=== PATIENT | male | born 1935 ===

== ENCOUNTER 2018-12-10 14:10 | Inpatient (IN) | payer MEDICARE, MEDICAID ==
[2018-12-10 14:10] VITALS: BMI 23.6
--- NOTE | 2018-12-10 14:56 | C.PDOC ---
History Of Present Illness 83 y/o male,w/PMhx of atrial fibrillation, CAD, peripheral vascular disease, intercranial hemorrhage, and aortic stenosis, presents to the ER complaining of chest tightness which has been for "long while." Patient states that he has chest tightness even with mild exertion. Patient reports that he can't even walk 1 block without having chest tightness. He notes that he has to rest before he can continue walking. He is currently on Coumadin. He went to see and referred him to the ER. Denies having SOB, fever,chills, nausea, vomiting, and abdominal pain. Time Seen by Provider: 12/10/18 14:32 Chief Complaint (Nursing): Chest Pain History Per: Patient History/Exam Limitations: no limitations Onset/Duration Of Symptoms: Days Current Symptoms Are (Timing): Still Present Severity: Moderate Past Medical History Reviewed: Historical Data, Nursing Documentation, Vital Signs Vital Signs: Last Vital Signs Temp 97.3 F L 12/10/18 14:52 Pulse 94 H 12/10/18 14:52 Resp 16 12/10/18 14:52 BP 165/90 H 12/10/18 14:52 Pulse Ox 99 12/10/18 14:52 Primary Care Provider: Alvarez Bradshaw - Medical History PMH: Asthma (SEASONAL), Atrial Fibrillation, Cardia Arrhythmia, Cardiac Aneurysm, HTN, Hypercholesterolemia Denies: HIV, Chronic Kidney Disease Other Surgeries: Hx of surgeries - [facility] Procedures ANGIOPLASTY OF OTHER NON-CORONARY VESSEL(S) (11/12/13) DX ULTRASOUND-HEART (11/12/13) INSEJ OF DRUG-ELUTING STENT(S) OF OTH PERIPHERAL VESSEL(S) (11/12/13) INSERTION OF ONE VASCULAR STENT (11/12/13) OTHER ENDOVASCULAR PROCEDURES ON OTHER VESSELS (11/12/13) PROCEDURE ON SINGLE VESSEL (11/12/13) TU DESTRUC BLADD LES NEC (02/14/15) Family History: States: No Known Family Hx - Social History Hx Tobacco Use: No Hx Alcohol Use: No Hx Substance Use: No - Immunization History Hx Tetanus Toxoid Vaccination: Yes Hx Influenza Vaccination: Yes Hx Pneumococcal Vaccination: Yes Review Of Systems Constitutional: Negative for: Fever, Chills Cardiovascular: Positive for: Other (chest tightness) Respiratory: Negative for: Shortness of Breath Gastrointestinal: Negative for: Nausea, Vomiting Physical Exam - Physical Exam Appears: Non-toxic, No Acute Distress Skin: Normal Color, Warm, Dry Head: Atraumatic, Normacephalic Eye(s): bilateral: Normal Inspection Nose: Normal Oral Mucosa: Moist Neck: Supple Chest: Symmetrical Cardiovascular: Rhythm Irregular, Murmur (loud murmur) Respiratory: Normal Breath Sounds, No Rales, No Rhonchi, No Wheezing Gastrointestinal/Abdominal: Normal Exam, Soft, No Tenderness, No Guarding, No Rebound Neurological/Psych: Oriented x3, Normal Speech ED Course And Treatment - Laboratory Results Result Diagrams: 12/10/18 15:07 12/10/18 15:07 Lab Interpretation: No Acute Changes ECG: Interpreted By Me ECG Rhythm: Atrial Fibrillation (with left axis and LVH) ECG Interpretation: No Acute Changes O2 Sat by Pulse Oximetry: 99 (RA) Pulse Ox Interpretation: Normal - Radiology CXR: Viewed By Me, Read By Radiologist CXR Interpretation: Yes: No Acute Disease, Cardiomegaly Reevaluation Time: 19:59 Reassessment Condition: Improved - Physician Consult Information Time Consulting Physician Contacted: 19:59 Physician Contacted: Oscar Gonzalez Outcome Of Conversation: Patient to be admitted to [facility] for exertional angina and cardiac cath tomorrow. Medical Decision Making Medical Decision Making: Plan: --Labs --CXR Disposition - Disposition Disposition: HOSPITALIZED Disposition Time: 19:59 Condition: STABLE - POA Present On Arrival: None - Clinical Impression Clinical Impression: Chest pain - Scribe Statement The provider has reviewed the documentation as recorded by the [facility] Provider Attestation: All medical record entries made by the [facility] were at my direction and personally dictated by me. I have reviewed the chart and agree that the record accurately reflects my personal performance of the history, physical exam, medical decision making, and the department course for this patient. I have also personally directed, reviewed, and agree with the discharge instructions and disposition.
[2018-12-10 15:24] LABS: BASO % 0.5 % (0.0-2.0); EOS % 0.2 % (0.0-4.0); HEMOGLOBIN 16.6 g/dL (12.0-18.0); LYMPH # 1.1 K/uL (1.0-4.3); LYMPH % 13.2 % (20.0-40.0); MEAN CORPUSCULAR HEMOGLOBIN 33.8 pg (27.0-31.0); MEAN CORPUSCULAR HGB CONC 34.4 g/dL (33.0-37.0); MEAN PLATELET VOLUME 8.2 fL (7.2-11.7); MONO # 0.7 K/uL (0.0-0.8); MONO % 8.6 % (0.0-10.0); NEUT # 6.6 K/uL (1.8-7.0); NEUT % 77.5 % (50.0-75.0); RBC 4.92 Mil/uL (4.40-5.90); RED CELL DISTRIBUTION WIDTH 13.9 % (11.5-14.5); WHITE BLOOD COUNT 8.5 K/uL (4.8-10.8)
[2018-12-10 15:28] LABS: MEAN CELL VOLUME 98.1 fL (80.0-94.0)
[2018-12-10 15:41] LABS: ALB/GLOB RATIO 1.2 (1.0-2.1); ALBUMIN 4.3 g/dL (3.5-5.0); ALT/SGPT 24 U/L (21-72); AST/SGOT 39 U/L (17-59); BLOOD UREA NITROGEN 37 mg/dL (9-20); CALCIUM 10.9 mg/dl (8.6-10.4); GFR NON-AFRICAN AMERICAN 58
--- NOTE | 2018-12-10 15:49 | RAD ---
Date of service: 12/10/2018 PROCEDURE: CHEST RADIOGRAPH, 1 VIEW HISTORY: Chest pain. COMPARISON: 11/04/2015. FINDINGS: LUNGS: Clear. PLEURA: No pneumothorax or pleural fluid seen. CARDIOVASCULAR: No aortic atherosclerotic calcification present. Cardiomegaly. No evidence of acute, significant cardiovascular disease. OSSEOUS STRUCTURES: No significant abnormalities. VISUALIZED UPPER ABDOMEN: Normal. OTHER FINDINGS: None. IMPRESSION: No active pulmonary disease. Cardiomegaly without CHF.
--- NOTE | 2018-12-10 21:56 | CP.PCM.HP ---
History of Present Illness - History of Present Illness History of Present Illness: Chief complaint: Exertional dyspnea HPI: 83-year-old male with a history of hypertension, atherosclerotic heart disease, peripheral vascular disease, hypercholesterolemia, brain aneurysm, status post brain bleed, status post aneurysmal coiling, currently on anticoagulation with Coumadin. Patient currently taking the medications for his blood pressure and also cholesterol. Patient is now having increasing dementia. But he is complaining of increasing exertional dyspnea especially walking less than a block because of increasing chest tightness and chest pressure at this time as of breath. Patient experiencing the symptoms more frequently now, associated with some dizziness. Patient in the past was told that he had a history of aortic stenosis, which is probably getting worse at this time. He denies any vomiting at this time no nausea. No abdominal pain. No GI symptoms. He is going to the bathroom normally. No leg pain. Patient had recent epidural injection for his lower back pain Past medical history: Hypertension, hypercholesterolemia, atherosclerotic heart disease, PVD, hypercholesterolemia, benign aneurysm, CVA with vascular dementia, aortic stenosis and PVD with stenting Surgical history include coiling of the aneurysm of the brain Angioplasty of the legs. Allergies: Multiple allergies noted including codeine and vancomycin Family history noncontributory Patient is a non-smoker. Nonalcoholic. Lives by himself. Patient has a home health aide service per day for 5 days. Review of system: Patient is currently living independently. With home health aide. His walking capacity significantly decreased to because of the shortness of breath. Leg pain negative. Denies any headache. Recently had a stroke. Currently on Coumadin. He has severe atherosclerotic heart disease. No abdominal pain no chest pain at this time, but is severe exertional dyspnea present On examination: Vital signs otherwise stable. Chest bilateral good air entry Heart sounds are regular Systolic murmur noted. Abdomen soft nontender. TRANSFER AGENT alert awake oriented x3 no functional neurological deficit Patient has a bilateral lower extremity edema negative I reviewed the patient's labs. Nonspecific Chest x-ray nonspecific. In the past the patient had multiple evaluation of the CAT scan of the abdomen on the CAT scan of the abdomen CAT scan of the chest. Patient has a severe atherosclerotic aorta with good tortuosity noted in the abd omen as well as in the chest. Assessment and recommendation: 83-year-old male with history of hypertension Atherosclerosis. Hypercholesterolemia. Peripheral vascular disease. History of aneurysmal bleeding. 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 CVA. Vascular dementia. Aortic stenosis now. Onset exertional dyspnea Cardiac ischemia cannot be ruled out to Cardiology evaluation. Telemetry monitoring. We will continue to monitor and follow the patient. Cardiac enzymes monitoring I spoke to the patient's son in detail. I also spoke to the marine firer Present on Admission - Present on Admission Any Indicators Present on Admission: No History of DVT/PE: No History of Uncontrolled Diabetes: No Urinary Catheter: No Decubitus Ulcer Present: No Past Patient History - Infectious Disease Hx of Infectious Diseases: None - Past Medical History & Family History Past Medical History?: Yes - Past Social History Smoking Status: Never Smoked - CARDIAC Hx Atrial Fibrillation: Yes Hx Cardia Arrhythmia: Yes Hx Hypercholesterolemia: Yes Hx Hypertension: Yes - PULMONARY Hx Asthma: Yes (SEASONAL) - NEUROLOGICAL Hx Neurological Disorder: Yes Other/Comment: Aneurysm, multiple - HEENT Hx HEENT Problems: Yes Hx Cataracts: Yes (Right with intraocular lens) Hx Glaucoma: Yes - RENAL Hx Chronic Kidney Disease: No - ENDOCRINE/METABOLIC Hx Endocrine Disorders: No - HEMATOLOGICAL/ONCOLOGICAL Hx Human Immunodeficiency Virus (HIV): No - INTEGUMENTARY Hx Dermatological Problems: Yes (PRE CANCEROUS LESIONS OVER BODY X6-REMOVED) - MUSCULOSKELETAL/RHEUMATOLOGICAL Hx Musculoskeletal Disorders: No Hx Falls: Yes - GASTROINTESTINAL Hx Gastrointestinal Disorders: No - GENITOURINARY/GYNECOLOGICAL Hx Genitourinary Disorders: Yes Hx Hematuria: Yes - PSYCHIATRIC Hx Substance Use: No - SURGICAL HISTORY Hx Surgeries: Yes Hx Angioplasty: Yes (double) Hx Cataract Extraction: Yes (RIGHT) Other/Comment: STENT IN RIGHT LEG FROM CLOT NOVEMBER 2013. - ANESTHESIA Hx Anesthesia: Yes Hx Anesthesia Reactions: No Hx Malignant Hyperthermia: No Meds Allergies/Adverse Reactions: Allergies Allergy/AdvReac Type Severity Reaction Status Date / Time codeine Allergy SHORTNESS Verified 12/10/18 14:48 OF BREATH Tricyclic Compounds Allergy SHORTNESS Verified 12/10/18 14:48 OF BREATH vancomycin Allergy SHORTNESS Verified 12/10/18 14:48 OF BREATH Canteloupe, melons Allergy ITCHING Uncoded 12/10/18 14:48 Results - Vital Signs Recent Vital Signs: Last Vital Signs Temp 97.3 F L 12/10/18 18:27 Pulse 69 12/10/18 18:27 Resp 16 12/10/18 18:27 BP 99/75 L 12/10/18 18:27 Pulse Ox 99 12/10/18 20:00 - Labs Result Diagrams: 12/10/18 15:07 12/10/18 15:07 Labs: Laboratory Results - last 24 hr 12/10/18 12/10/18 15:07 15:07 WBC 8.5 RBC 4.92 Hgb 16.6 Hct 48.2 MCV 98.1 H D MCH 33.8 H MCHC 34.4 RDW 13.9 Plt Count 237 MPV 8.2 Neut % (Auto) 77.5 H Lymph % (Auto) 13.2 L [place] % (Auto) 8.6 Eos % (Auto) 0.2 Baso % (Auto) 0.5 Neut # (Auto) 6.6 Lymph # (Auto) 1.1 [place] # (Auto) 0.7 Eos # (Auto) 0.0 Baso # (Auto) 0.0 Sodium 139 Potassium 3.9 Chloride 100 Carbon Dioxide 27 Anion Gap 16 BUN 37 H Creatinine 1.2 Est GFR ( Amer) > 60 Est GFR (Non-Af Amer) 58 Random Glucose 131 H Calcium 10.9 H Total Bilirubin 0.7 AST 39 ALT 24 Alkaline Phosphatase 33 L Troponin I 0.0400 Total Protein 7.8 Albumin 4.3 Globulin 3.5 Albumin/Globulin Ratio 1.2
[2018-12-11] MEDS ORDERED: Pneumococcal 23-Valent Vaccine IM ONE (00:09)
[2018-12-11 02:16] LABS: INR 1.9; PROTHROMBIN TIME 20.8 SECONDS (9.7-12.2)
[2018-12-11 06:23] LABS: INR 1.8; PROTHROMBIN TIME 20.3 SECONDS (9.7-12.2)
[2018-12-11 06:27] LABS: CK-MB 2.87 ng/mL (0.0-3.38); TROPONIN I 0.059 ng/mL (0.00-0.120)
--- NOTE | 2018-12-11 07:09 | CP.PCM.CON ---
History of Present Illness - History of Present Illness History of Present Illness: CONSULTATION DICTATED S/P ANEURYSMAL CLIPPED LAST YEAR Hx SAH WITH THE SAME DEMENTIA CAT HEAD R/O BLEED PRIOR TO CARDIAC CATH IF NO ICH FROM CAT - NEURO MCCLURE HE IS CLEARED FOR CARDIAC PROCEDURE AND ANTI COAGULATION Past Patient History - Infectious Disease Hx of Infectious Diseases: None - Past Medical History & Family History Past Medical History?: Yes - Past Social History Smoking Status: Never Smoked - CARDIAC Hx Atrial Fibrillation: Yes Hx Cardia Arrhythmia: Yes Hx Hypercholesterolemia: Yes Hx Hypertension: Yes - PULMONARY Hx Asthma: Yes (SEASONAL) - NEUROLOGICAL Hx Neurological Disorder: Yes Other/Comment: Aneurysm, multiple - HEENT Hx HEENT Problems: Yes Hx Cataracts: Yes (Right with intraocular lens) Hx Glaucoma: Yes - RENAL Hx Chronic Kidney Disease: No - ENDOCRINE/METABOLIC Hx Endocrine Disorders: No - HEMATOLOGICAL/ONCOLOGICAL Hx Human Immunodeficiency Virus (HIV): No - INTEGUMENTARY Hx Dermatological Problems: Yes (PRE CANCEROUS LESIONS OVER BODY X6-REMOVED) - MUSCULOSKELETAL/RHEUMATOLOGICAL Hx Musculoskeletal Disorders: No Hx Falls: Yes - GASTROINTESTINAL Hx Gastrointestinal Disorders: No - GENITOURINARY/GYNECOLOGICAL Hx Genitourinary Disorders: Yes Hx Hematuria: Yes - PSYCHIATRIC Hx Substance Use: No - SURGICAL HISTORY Hx Surgeries: Yes Hx Angioplasty: Yes (double) Hx Cataract Extraction: Yes (RIGHT) Other/Comment: STENT IN RIGHT LEG FROM CLOT NOVEMBER 2013. - ANESTHESIA Hx Anesthesia: Yes Hx Anesthesia Reactions: No Hx Malignant Hyperthermia: No Meds Allergies/Adverse Reactions: Allergies Allergy/AdvReac Type Severity Reaction Status Date / Time codeine Allergy SHORTNESS Verified 12/10/18 14:48 OF BREATH Tricyclic Compounds Allergy SHORTNESS Verified 12/10/18 14:48 OF BREATH vancomycin Allergy SHORTNESS Verified 12/10/18 14:48 OF BREATH Canteloupe, melons Allergy ITCHING Uncoded 12/10/18 14:48 - Medications Medications: Current Medications Donepezil HCl (Aricept) 10 mg PO HS [facility] Last Admin: 12/10/18 22:25 Dose: 10 mg Dorzolamide HCl (Trusopt) 0 ml OU TID [facility] Fenofibrate (Tricor) 145 mg PO QPM [facility] Home Med (Eslicarbazepine Acetate [Aptiom]) 200 mg PO DAILY [facility] Metoprolol Tartrate (Lopressor) 50 mg PO BID [facility] Montelukast Sodium (Singulair) 10 mg PO HS [facility] Last Admin: 12/10/18 22:24 Dose: 10 mg Pantoprazole Sodium (Protonix Ec Tab) 40 mg PO DAILY [facility] Rosuvastatin Calcium (Crestor) 10 mg PO HS [facility] Last Admin: 12/10/18 22:24 Dose: 10 mg Spironolactone (Aldactone) 25 mg PO BID [facility] Tamsulosin HCl (Flomax) 0.4 mg PO DAILY [facility] Results - Vital Signs Recent Vital Signs: Last Vital Signs Temp 98.2 F 12/11/18 04:12 Pulse 52 L 12/11/18 04:12 Resp 20 12/11/18 04:12 BP 100/61 12/11/18 04:12 Pulse Ox 98 12/11/18 04:12 - Labs Result Diagrams: 12/10/18 15:07 12/10/18 15:07 Labs: Laboratory Results - last 24 hr 12/10/18 12/10/18 12/11/18 15:07 15:07 02:03 WBC 8.5 RBC 4.92 Hgb 16.6 Hct 48.2 MCV 98.1 H D MCH 33.8 H MCHC 34.4 RDW 13.9 Plt Count 237 MPV 8.2 Neut % (Auto) 77.5 H Lymph % (Auto) 13.2 L [place] % (Auto) 8.6 Eos % (Auto) 0.2 Baso % (Auto) 0.5 Neut # (Auto) 6.6 Lymph # (Auto) 1.1 [place] # (Auto) 0.7 Eos # (Auto) 0.0 Baso # (Auto) 0.0 PT 20.8 H INR 1.9 APTT 35.0 H Sodium 139 Potassium 3.9 Chloride 100 Carbon Dioxide 27 Anion Gap 16 BUN 37 H Creatinine 1.2 Est GFR ( Amer) > 60 Est GFR (Non-Af Amer) 58 Random Glucose 131 H Calcium 10.9 H Total Bilirubin 0.7 AST 39 ALT 24 Alkaline Phosphatase 33 L Total Creatine Kinase CK-MB (Mass) Troponin I 0.0400 Total Protein 7.8 Albumin 4.3 Globulin 3.5 Albumin/Globulin Ratio 1.2 12/11/18 12/11/18 05:55 05:55 WBC RBC Hgb Hct MCV MCH MCHC RDW Plt Count MPV Neut % (Auto) Lymph % (Auto) [place] % (Auto) Eos % (Auto) Baso % (Auto) Neut # (Auto) Lymph # (Auto) [place] # (Auto) Eos # (Auto) Baso # (Auto) PT 20.3 H INR 1.8 APTT Sodium Potassium Chloride Carbon Dioxide Anion Gap BUN Creatinine Est GFR ( Amer) Est GFR (Non-Af Amer) Random Glucose Calcium Total Bilirubin AST ALT Alkaline Phosphatase Total Creatine Kinase 70 CK-MB (Mass) 2.87 Troponin I 0.0590 Total Protein Albumin Globulin Albumin/Globulin Ratio
--- NOTE | 2018-12-11 08:02 | CP.PCM.PN ---
Subjective - Date & Time of Evaluation Date of Evaluation: 12/11/18 Time of Evaluation: 08:01 - Subjective Subjective: Patient today seen by neurologist already. Neurologist clearance required prior to the angiogram as per the cardiology. Patient had a CT scan of the head now. No untoward events last night. Patient has a atrial flutter fibrillation. The heart rate is stable. Patient is on Coumadin. INR was subtherapeutic yesterday. Will discuss with cardiology, will start the Coumadin back again once procedure is done. Meanwhile we will continue the current treatment We will follow the patient Objective - Vital Signs/Intake and Output Vital Signs (last 24 hours): Temp Pulse Resp BP Pulse Ox 98.2 F 52 L 20 100/61 98 12/11/18 04:12 12/11/18 04:12 12/11/18 04:12 12/11/18 04:12 12/11/18 04:12 Intake and Output: 12/11/18 12/11/18 06:59 18:59 Intake Total 0 Output Total 200 Balance -200 - Medications Medications: Current Medications Donepezil HCl (Aricept) 10 mg PO HS [facility] Last Admin: 12/10/18 22:25 Dose: 10 mg Dorzolamide HCl (Trusopt) 0 ml OU TID [facility] Fenofibrate (Tricor) 145 mg PO QPM [facility] Home Med (Eslicarbazepine Acetate [Aptiom]) 200 mg PO DAILY [facility] Metoprolol Tartrate (Lopressor) 50 mg PO BID [facility] Montelukast Sodium (Singulair) 10 mg PO [facility] Last Admin: 12/10/18 22:24 Dose: 10 mg Pantoprazole Sodium (Protonix Ec Tab) 40 mg PO DAILY [facility] Rosuvastatin Calcium (Crestor) 10 mg PO [facility] Last Admin: 12/10/18 22:24 Dose: 10 mg Spironolactone (Aldactone) 25 mg PO BID [facility] Tamsulosin HCl (Flomax) 0.4 mg PO DAILY [facility] - Labs Labs: 12/10/18 15:07 12/10/18 15:07 PT 20.3 SECONDS (9.7-12.2) H 12/11/18 05:55 INR 1.8 12/11/18 05:55 APTT 35.0 SECONDS (21-34) H 12/11/18 02:03
[2018-12-11 08:33] LABS: FREE T4 0.94 ng/dL (0.78-2.19)
--- NOTE | 2018-12-11 09:28 | CT ---
Date of service: 12/11/2018 PROCEDURE: CT HEAD WITHOUT CONTRAST. HISTORY: Hx of stroke COMPARISON: None available. TECHNIQUE: Axial computed tomography images were obtained through the head/brain without intravenous contrast. Radiation dose: Total exam DLP = 1164.29 mGy-cm. This CT exam was performed using one or more of the following dose reduction techniques: Automated exposure control, adjustment of the mA and/or kV according to patient size, and/or use of iterative reconstruction technique. FINDINGS: HEMORRHAGE: No intracranial hemorrhage. BRAIN: No mass effect or edema. Minimal atrophy consistent with age. Moderate to severe patchy and confluent white matter lucency in the periventricular and deep white matter, consistent with microvascular white matter ischemic change. There is focal encephalomalacia in the left temporal lobe. There an aneurysm clip in the left temporal lobe. There is a peripherally calcified aneurysm within the right sylvian fissure measuring 9 mm in diameter, unchanged from previous examination. No other intracranial aneurysm is identified. Please note that evaluation of the left frontal and temporal region is limited due to beam hardening artifact arising from the aneurysm clip in the left temporal fossa. VENTRICLES: Unremarkable. No hydrocephalus. CALVARIUM: Unremarkable. PARANASAL SINUSES: Unremarkable as visualized. No significant inflammatory changes. MASTOID AIR CELLS: Unremarkable as visualized. No inflammatory changes. OTHER FINDINGS: None. IMPRESSION: Status post placement of aneurysm clip left temporal fossa. Left temporal encephalomalacia. Stable 9 mm peripherally calcified aneurysm within the right sylvian fissure. Chronic white matter ischemic change and mild atrophy.
[2018-12-11] MEDS ORDERED: Lidocaine 2% MPF (5 ml) Inj ONE (09:40)
[2018-12-11] MEDS ORDERED: Iodixanol 320 MG/ML 100 ML BOTTLE IV ONE (09:40)
[2018-12-11] MEDS ORDERED: Nitroglycerin 50mg in D5W 50 MG/250 ML BOTTLE IV ONE (09:41)
[2018-12-11] MEDS ORDERED: Verapamil 2 ML ONE (09:41)
[2018-12-11] MEDS ORDERED: Midazolam 2 MG/2 ML VIAL ONE (09:47)
[2018-12-11] MEDS ORDERED: ESLICARBAZEPINE ACETATE 200 MG PO SCH (10:00)
[2018-12-11] MEDS ORDERED: Phenylephrine 10 mg/ml Inj ONE (10:08)
--- NOTE | 2018-12-11 10:45 | CON ---
DATE: 12/11/2018 NEUROLOGY CONSULTATION TIME OF EVALUATION: 07:05 a.m. REASON FOR CONSULTATION: Neurological clearance for cardiac procedure and anticoagulation. CHIEF COMPLAINT: The patient was brought into [facility] with history of chest discomfort as he went to see a mover helper and he advised him to come for cardiac procedures if necessary anticoagulation. From neurological point of view, I was called in to clear him for the same. HISTORY OF PRESENT ILLNESS: Mr. Micah Tena is an 83-year-old thinly built right-handed male presenting with chest tightness and shortness of breath. He went to see his mover helper. He was advised to come to the hospital for further evaluation. The patient has significant history of subarachnoid hemorrhage from intracranial aneurysm, being clipped through to angiographic method. The patient could not recall when was it done and how it was done. All he remembers he did have some bleeding in his head and he lost his consciousness for about 3 or 4 days. At present, he could not recall when was it done and where was it done also. No history of seizures. No history of focal weakness following these procedures in the past. PAST MEDICAL HISTORY: Atrial fibrillation, cardiac arrhythmias, history of cerebral aneurysm being clipped, hypercholesterolemia, benign cardiac aneurysm, aortic stenosis, significant peripheral; cardiovascular and cerebrovascular disease; status post angioplasty in his legs. ALLERGIES: ALLERGIC TO MULTIPLE MEDICATIONS INCLUDING CODEINE, VANCOMYCIN. PERSONAL HISTORY: Nonsmoker. No history of alcohol use. MEDICATIONS: Spironolactone, Aricept, Crestor, Flomax, Lopressor, Protonix, Singulair, Tricor, and Trusopt. REVIEW OF SYSTEMS: 12-point system being reviewed. From neuro, history of cerebral hemorrhage and aneurysm. PHYSICAL EXAMINATION: VITAL SIGNS: Blood pressure 100/61, mean artery pressure of 74, respiratory rate 18, temperature 98.2, pulse rate 52 regular. NECK: Supple. No carotid bruits. HEART: Sounds regular with ejection systolic murmur. EXTREMITIES: No edema in the legs. NEUROLOGIC: MENTAL STATUS EXAMINATION: He is awake, alert, and oriented to person and place. Significant retrograde amnesia. No confabulation, no sign of depression. Speech is clear, following two to three-step command. No right and left confusion. Significant short-term memory as well as long-term memory impairment. CRANIAL NERVE EXAMINATION: Visual field intact. Pupils reactive to light. Extraocular movements normal, no nystagmus. No facial sensory deficit. Significant facial asymmetry manifesting as a flattening of the right nasolabial fold. Hearing is normal. Tongue is midline. Good gag. MOTOR EXAMINATION: On outstretched hand with eyes closed, no drift noted. Power is symmetric on either side. Tone is normal on both sides. Deep tendon reflexes, hyperreflexia on the right side, 1+ on the left side. Plantars are upgoing on both sides. SENSORY EXAMINATION: Grossly intact. No cortical sensory loss. COORDINATION: [id number] test is intact. Gait is deferred at this time because of his chest discomfort. CONCLUSION: On reviewing his history from him as well as medical records from the document as per neurological examination, the patient does have right hemiparesis with left intracranial insult probably due to his previous aneurysm-related complication. It could be related to small vessel disease in the past all related to his cardiac risk factors including atrial fibrillation and dyslipidemia. RECOMMENDATIONS: 1. CT of the head to be done without contrast to rule out any intracerebral bleed prior to any cardiac procedures and further anticoagulation. If CT of the head is negative for bleed, he could further pursue cardiac catheterization as well as neuro-barrientos cleared for anticoagulation. 2. Dementia workup should be done and medication for dementia should be updated and titrated to the therapeutic level. 3. Electroencephalogram to assess his electrophysiological status of his brain. 4. Blood workup also recommended for his dementia. 5. The patient will be followed while he is in the hospital. Rad Lyons MD
--- NOTE | 2018-12-11 10:50 | CP.PCM.PN ---
Subjective - Date & Time of Evaluation Date of Evaluation: 12/11/18 Time of Evaluation: 10:41 - Subjective Subjective: Patient s/p Cath 1. L Main: Ostial 95%, distal 70% 2. LAD: Mid 90%, Distal 95% 3. L CX: Mid 98%, OM1 80% 4. RCA: Dominant. PDA 70%, PLV 80% 5. LV: Not assessed A/P 1. Critical diffuse Triple vessel disease 2. Aortic stenosis 3. A Fib 4. Hx of Cerebral aneurysm/clipping (Post clip bleed) 5. Moderate Dementia High risk CABG plus SAVR Possible transfer to [place] IV Heparin (Bolus and drip with ACS protocol) to start at 1.30pm ASA 81, Statins, B blockers Bed rest 4 hours Gentle hydration Check ECHO to assess EF and YUE Objective - Vital Signs/Intake and Output Vital Signs (last 24 hours): Temp Pulse Resp BP Pulse Ox 97.3 F L 65 20 105/72 98 12/11/18 08:08 12/11/18 08:10 12/11/18 08:08 12/11/18 08:08 12/11/18 08:08 Intake and Output: 12/11/18 12/11/18 06:59 18:59 Intake Total 0 Output Total 200 Balance -200 - Medications Medications: Current Medications Donepezil HCl (Aricept) 10 mg PO HS [facility] Last Admin: 12/10/18 22:25 Dose: 10 mg Dorzolamide HCl (Trusopt) 0 ml OU TID [facility] Fenofibrate (Tricor) 145 mg PO QPM [facility] Home Med (Eslicarbazepine Acetate [Aptiom]) 200 mg PO DAILY [facility] Metoprolol Tartrate (Lopressor) 50 mg PO BID [facility] Montelukast Sodium (Singulair) 10 mg PO HS [facility] Last Admin: 12/10/18 22:24 Dose: 10 mg Pantoprazole Sodium (Protonix Ec Tab) 40 mg PO DAILY [facility] Rosuvastatin Calcium (Crestor) 10 mg PO HS [facility] Last Admin: 12/10/18 22:24 Dose: 10 mg Spironolactone (Aldactone) 25 mg PO BID [facility] Tamsulosin HCl (Flomax) 0.4 mg PO DAILY [facility] - Labs Labs: 12/10/18 15:07 12/10/18 15:07 PT 20.3 SECONDS (9.7-12.2) H 12/11/18 05:55 INR 1.8 12/11/18 05:55 APTT 35.0 SECONDS (21-34) H 12/11/18 02:03
--- NOTE | 2018-12-11 11:03 | CARD ---
APPROVED REPORT Date of service: 12/10/2018 EKG Measurement Heart [id number] <Conclusion> Atrial fibrillation Left axis deviation Moderate voltage criteria for LVH, may be normal variant Nonspecific ST abnormality Abnormal ECG
[2018-12-11] MEDS: Pantoprazole 40 mg EC Tab PO SCH (11:54)
[2018-12-11] MEDS: Dorzolamide 2% Opht Sol 10ml OU SCH ×3 (11:54→17:11)
[2018-12-11 12:56] LABS: FOLATE 6.3 ng/mL
[2018-12-11 13:13] LABS: BASO % 0.6 % (0.0-2.0); EOS % 0.3 % (0.0-4.0); HEMOGLOBIN 15.9 g/dL (12.0-18.0); LYMPH % 14.2 % (20.0-40.0); MEAN CELL VOLUME 97.7 fL (80.0-94.0); MEAN CORPUSCULAR HEMOGLOBIN 34.2 pg (27.0-31.0); MEAN PLATELET VOLUME 8.2 fL (7.2-11.7); MONO # 0.5 K/uL (0.0-0.8); NEUT # 5.7 K/uL (1.8-7.0); NEUT % 77.9 % (50.0-75.0); NRBC % 0.1 % (0.0-2.0); RBC 4.63 Mil/uL (4.40-5.90); RED CELL DISTRIBUTION WIDTH 13.5 % (11.5-14.5); WHITE BLOOD COUNT 7.3 K/uL (4.8-10.8)
[2018-12-11 13:42] LABS: ALB/GLOB RATIO 1.2 (1.0-2.1); ALBUMIN 4.1 g/dL (3.5-5.0); ALT/SGPT 26 U/L (21-72); AST/SGOT 52 U/L (17-59); BLOOD UREA NITROGEN 30 mg/dL (9-20); CALCIUM 10.2 mg/dl (8.6-10.4); GFR NON-AFRICAN AMERICAN > 60
[2018-12-11 13:43] LABS: B-TYPE NATRIURETIC PEPTIDE 1940 pg/mL (0-900)
[2018-12-11] MEDS: Heparin25000 units/250ml 1/2NS 25,000 UNITS/250 ML BAG IV PRN (14:05)
--- NOTE | 2018-12-11 15:03 | CP.PCM.CON ---
History of Present Illness - History of Present Illness History of Present Illness: PGY-1 Critical Care Consult Note for Dr. Maloney Patient is an 83 year old male with PMHx HTN, coronary arery disease, peripheral vascular disease, hypercholesterolemia, CVA, vascular dementia, aortic stenosis, brain aneurysm s/p endovascular repair who presents status-post cardiac cath for post-op ICU monitoring. Patient initially presented to his physician for anginal chest pain, which patient states began several months ago and has been having since that time. He states having pain when walking distance of a block or less like tightness in his chest. Patient has history of dementia, CVA, and aneurysm and notes having difficulty with memory and does appear to have difficulty concentrating while answering questions and goes off topic. Patient denies any chest pain at present, denies pain at catheter site, denies bleeding, numbness, or tingling. Patient is aware he may be transferred to [facility] for CABG due to high-risk nature of his cardiac disease (diffuse triple vessel disease. Patient in ICU for monitoring, cardiac medical monitoring per cardio, Dr. Bradshaw. PMHx: HTN, coronary arery disease, peripheral vascular disease, hypercholesterolemia, CVA, vascular dementia, aortic stenosis, brain aneurysm s/ p endovascular repair Social history: Denies smoking, alcohol use. Lives in apartment building in [facility] hx: Endovascular brain aneurysm repair Allergies: Vancomycin, TCAs, codeine Review of Systems - Constitutional Constitutional: absent: Chills, Fever - Cardiovascular Cardiovascular: Chest Pain with Activity. absent: Chest Pain at Rest, Claudication, Pain Radiating to Arm/Neck/Jaw, Palpitations, Radiating Pain - Respiratory Respiratory: absent: Cough, Dyspnea - Gastrointestinal Gastrointestinal: absent: Abdominal Pain, Nausea, Vomiting - Musculoskeletal Musculoskeletal: absent: Back Pain, Neck Pain - Neurological Neurological: Confusion, Memory Loss. absent: Dizziness, Numbness, Headaches - Psychiatric Psychiatric: absent: Anxiety, Depression - Hematologic/Lymphatic Hematologic: absent: Easy Bleeding, Easy Bruising Past Patient History - Infectious Disease Hx of Infectious Diseases: None - Past Medical History & Family History Past Medical History?: Yes - Past Social History Smoking Status: Never Smoked - CARDIAC Hx Atrial Fibrillation: Yes Hx Cardia Arrhythmia: Yes Hx Hypercholesterolemia: Yes Hx Hypertension: Yes - PULMONARY Hx Asthma: Yes (SEASONAL) - NEUROLOGICAL Hx Neurological Disorder: Yes Other/Comment: Aneurysm, multiple - HEENT Hx HEENT Problems: Yes Hx Cataracts: Yes (Right with intraocular lens) Hx Glaucoma: Yes - RENAL Hx Chronic Kidney Disease: No - ENDOCRINE/METABOLIC Hx Endocrine Disorders: No - HEMATOLOGICAL/ONCOLOGICAL Hx Human Immunodeficiency Virus (HIV): No - INTEGUMENTARY Hx Dermatological Problems: Yes (PRE CANCEROUS LESIONS OVER BODY X6-REMOVED) - MUSCULOSKELETAL/RHEUMATOLOGICAL Hx Musculoskeletal Disorders: No Hx Falls: Yes - GASTROINTESTINAL Hx Gastrointestinal Disorders: No - GENITOURINARY/GYNECOLOGICAL Hx Genitourinary Disorders: Yes Hx Hematuria: Yes - PSYCHIATRIC Hx Substance Use: No - SURGICAL HISTORY Hx Surgeries: Yes Hx Angioplasty: Yes (double) Hx Cataract Extraction: Yes (RIGHT) Other/Comment: STENT IN RIGHT LEG FROM CLOT NOVEMBER 2013. - ANESTHESIA Hx Anesthesia: Yes Hx Anesthesia Reactions: No Hx Malignant Hyperthermia: No Meds Allergies/Adverse Reactions: Allergies Allergy/AdvReac Type Severity Reaction Status Date / Time codeine Allergy SHORTNESS Verified 12/10/18 14:48 OF BREATH Tricyclic Compounds Allergy SHORTNESS Verified 12/10/18 14:48 OF BREATH vancomycin Allergy SHORTNESS Verified 12/10/18 14:48 OF BREATH Canteloupe, melons Allergy ITCHING Uncoded 12/10/18 14:48 - Medications Medications: Current Medications Acetaminophen (Tylenol 325mg Tab) 650 mg PO Q6 PRN PRN Reason: Pain, Mild (1-3) Last Admin: 12/11/18 12:05 Dose: 650 mg Aspirin (Aspirin Chewable) 81 mg PO DAILY [facility] Last Admin: 12/11/18 12:07 Dose: 81 mg Donepezil HCl (Aricept) 10 mg PO HS [facility] Last Admin: 12/10/18 22:25 Dose: 10 mg Dorzolamide HCl (Trusopt) 0 ml OU TID [facility] Last Admin: 12/11/18 11:54 Dose: Not Given Fenofibrate (Tricor) 145 mg PO QPM [facility] Home Med (Eslicarbazepine Acetate [Aptiom]) 200 mg PO DAILY [facility] Heparin Sodium/Sodium Chloride (Heparin 41304 Units/250ml 1/2 Normal Saline) 25,000 units in 250 mls @ 8.981 mls/hr IV .Q24H PRN; Protocol PRN Reason: PROTOCOL Last Admin: 12/11/18 14:05 Dose: 12 units/kg/hr, 8.981 mls/hr Metoprolol Tartrate (Lopressor) 50 mg PO BID [facility] Last Admin: 12/11/18 11:54 Dose: Not Given Montelukast Sodium (Singulair) 10 mg PO [facility] Last Admin: 12/10/18 22:24 Dose: 10 mg Pantoprazole Sodium (Protonix Ec Tab) 40 mg PO DAILY [facility] Last Admin: 12/11/18 11:54 Dose: Not Given Rosuvastatin Calcium (Crestor) 10 mg PO [facility] Last Admin: 12/10/18 22:24 Dose: 10 mg Spironolactone (Aldactone) 25 mg PO BID [facility] Last Admin: 12/11/18 11:07 Dose: 25 mg Tamsulosin HCl (Flomax) 0.4 mg PO DAILY [facility] Last Admin: 12/11/18 11:13 Dose: Not Given Physical Exam - Constitutional Appears: Non-toxic, No Acute Distress - Head Exam Head Exam: ATRAUMATIC, NORMOCEPHALIC - Eye Exam Eye Exam: EOMI, Normal appearance - ENT Exam ENT Exam: Mucous Membranes Moist - Respiratory Exam Respiratory Exam: Clear to Auscultation Bilateral, NORMAL BREATHING PATTERN. absent: Rhonchi, Wheezes - Cardiovascular Exam Cardiovascular Exam: REGULAR RHYTHM, +S1, +S2, Systolic Murmur. absent: JVD - GI/Abdominal Exam GI & Abdominal Exam: Normal Bowel Sounds, Soft. absent: Tenderness - Extremities Exam Extremities exam: Positive for: normal inspection, pedal pulses present. Nega tive for: pedal edema, tenderness - Neurological Exam Neurological exam: Alert, CN II-XII Intact, Oriented x3 - Psychiatric Exam Psychiatric exam: Normal Affect, Normal Mood - Skin Skin Exam: Dry, Intact, Normal Color Results - Vital Signs Recent Vital Signs: Last Vital Signs Temp 97 F L 12/11/18 12:30 Pulse 78 12/11/18 14:00 Resp 20 12/11/18 14:00 BP 126/69 12/11/18 14:00 Pulse Ox 95 12/11/18 14:00 - Labs Result Diagrams: 12/11/18 13:03 12/11/18 13:03 Labs: Laboratory Results - last 24 hr 12/10/18 12/10/18 12/11/18 15:07 15:07 02:03 WBC 8.5 RBC 4.92 Hgb 16.6 Hct 48.2 MCV 98.1 H D MCH 33.8 H MCHC 34.4 RDW 13.9 Plt Count 237 MPV 8.2 Neut % (Auto) 77.5 H Lymph % (Auto) 13.2 L [place] % (Auto) 8.6 Eos % (Auto) 0.2 Baso % (Auto) 0.5 Neut # (Auto) 6.6 Lymph # (Auto) 1.1 [place] # (Auto) 0.7 Eos # (Auto) 0.0 Baso # (Auto) 0.0 ESR PT 20.8 H INR 1.9 APTT 35.0 H Sodium 139 Potassium 3.9 Chloride 100 Carbon Dioxide 27 Anion Gap 16 BUN 37 H Creatinine 1.2 Est GFR ( Amer) > 60 Est GFR (Non-Af Amer) 58 Random Glucose 131 H Hemoglobin A1c Calcium 10.9 H Total Bilirubin 0.7 AST 39 ALT 24 Alkaline Phosphatase 33 L Total Creatine Kinase CK-MB (Mass) Troponin I 0.0400 C-React Prot High Sens NT-Pro-B Natriuret Pep Total Protein 7.8 Albumin 4.3 Globulin 3.5 Albumin/Globulin Ratio 1.2 Triglycerides Cholesterol LDL Cholesterol Direct HDL Cholesterol Vitamin B12 Folate Free T4 TSH 3rd Generation 12/11/18 12/11/18 12/11/18 05:55 05:55 07:19 WBC RBC Hgb Hct MCV MCH MCHC RDW Plt Count MPV Neut % (Auto) Lymph % (Auto) [place] % (Auto) Eos % (Auto) Baso % (Auto) Neut # (Auto) Lymph # (Auto) [place] # (Auto) Eos # (Auto) Baso # (Auto) ESR 3 PT 20.3 H INR 1.8 APTT Sodium Potassium Chloride Carbon Dioxide Anion Gap BUN Creatinine Est GFR ( Amer) Est GFR (Non-Af Amer) Random Glucose Hemoglobin A1c Calcium Total Bilirubin AST ALT Alkaline Phosphatase Total Creatine Kinase 70 CK-MB (Mass) 2.87 Troponin I 0.0590 C-React Prot High Sens NT-Pro-B Natriuret Pep Total Protein Albumin Globulin Albumin/Globulin Ratio Triglycerides Cholesterol LDL Cholesterol Direct HDL Cholesterol Vitamin B12 Folate Free T4 TSH 3rd Generation 12/11/18 12/11/18 12/11/18 07:19 07:19 07:19 WBC RBC Hgb Hct MCV MCH MCHC RDW Plt Count MPV Neut % (Auto) Lymph % (Auto) [place] % (Auto) Eos % (Auto) Baso % (Auto) Neut # (Auto) Lymph # (Auto) [place] # (Auto) Eos # (Auto) Baso # (Auto) ESR PT INR APTT Sodium Potassium Chloride Carbon Dioxide Anion Gap BUN Creatinine Est GFR ( Amer) Est GFR (Non-Af Amer) Random Glucose Hemoglobin A1c 5.5 Calcium Total Bilirubin AST ALT Alkaline Phosphatase Total Creatine Kinase CK-MB (Mass) Troponin I C-React Prot High Sens 0.15 L NT-Pro-B Natriuret Pep Total Protein Albumin Globulin Albumin/Globulin Ratio Triglycerides 80 D Cholesterol 126 LDL Cholesterol Direct 94 HDL Cholesterol 36 Vitamin B12 312 Folate 6.3 Free T4 0.94 TSH 3rd Generation 3.53 12/11/18 12/11/18 12/11/18 13:03 13:03 13:03 WBC 7.3 RBC 4.63 Hgb 15.9 Hct 45.3 MCV 97.7 H MCH 34.2 H MCHC 35.0 RDW 13.5 Plt Count 224 MPV 8.2 Neut % (Auto) 77.9 H Lymph % (Auto) 14.2 L [place] % (Auto) 7.0 Eos % (Auto) 0.3 Baso % (Auto) 0.6 Neut # (Auto) 5.7 Lymph # (Auto) 1.0 [place] # (Auto) 0.5 Eos # (Auto) 0.0 Baso # (Auto) 0.0 ESR PT INR APTT 36.0 H Sodium 138 Potassium 3.9 Chloride 99 Carbon Dioxide 28 Anion Gap 15 BUN 30 H Creatinine 0.9 Est GFR ( Amer) > 60 Est GFR (Non-Af Amer) > 60 Random Glucose 109 Hemoglobin A1c Calcium 10.2 Total Bilirubin 1.3 AST 52 ALT 26 Alkaline Phosphatase 30 L Total Creatine Kinase 61 CK-MB (Mass) 3.30 Troponin I 0.0490 C-React Prot High Sens NT-Pro-B Natriuret Pep 1940 H Total Protein 7.4 Albumin 4.1 Globulin 3.3 Albumin/Globulin Ratio 1.2 Triglycerides Cholesterol LDL Cholesterol Direct HDL Cholesterol Vitamin B12 Folate Free T4 TSH 3rd Generation Assessment & Plan - Assessment and Plan (Free Text) Assessment: 83 year old male with hypercholesterolemia and significant vascular/coronary artery disease presenting with anginal chest pain and found to have extensive triple vessel disease and aortic stenosis, and a fib, s/p diganostic cath with Dr. Bradshaw. ICU monitoring and transfer to [facility] for CABG/SAVR Plan Cardio Triple Vessel Coronary Artery Disease s/p Diagnostic Cardiac Cath -Cardiology, Dr. Bradshaw -Cath findings per Dr. Bradshaw: 1. L Main: Ostial 95%, distal 70% 2. LAD: Mid 90%, Distal 95% 3. L CX: Mid 98%, OM1 80% 4. RCA: Dominant. PDA 70%, PLV 80% 5. LV: Not assessed -ICU for cardiac monitoring -Defibrillator pads in place Meds -Heparin ggt -ASA 81 mg po daily -Crestor 10 mg PO HS -Possible transfer to [place] for CABG/SAVR -f/u echo report Aortic Stenosis -Possible transfer to [place] for CABG/SAVR -Currently asymptomatic Atrial Fibrillation -ICU cardiac monitoring -On admission was subtherapeutic on coumadin, how on heparin -Monitor PTT/INR -Sinus tach on monitor Meds -Heparin ggt -Metoprolol 50 mg PO BID Pulm -Breathing comfortably on room air -Maintain spO2 > 92% -On singulair at home - history COPD? Neuro Hx Vascular dementia, CVA, cerebral artery aneurysm -Neurology consulted, Dr. Lyons --CT head to r/o intracerebral bleed prior to further cardiac intervention or AC --> ----CT head 12/11: negative for bleed, stable 9mm peripherally calcified aneurysm. s/p placement of aneurysm clip L temporal fossa. ----Continue heparin ggt --EEG - f/u Meds -Donepazil 10 mg PO HS -A and O x3 Nephro -NS @ 40 cc/hr -Spironolactone 25 mg PO BID -Monitor Is and Os BPH -Flomax daily PPx -Heparin drip -Protonix 40 mg PO daily -Heparin ggt Assessment and plan d/w Dr. Haider Wiggins, PGY-1
[2018-12-11] MEDS: Sodium Chloride 0.9% 1,000 ML IV SCH (15:26)
[2018-12-12 06:31] LABS: BASO # 0.1 K/uL (0.0-0.2); BASO % 0.7 % (0.0-2.0); EOS % 0.4 % (0.0-4.0); HEMOGLOBIN 15.1 g/dL (12.0-18.0); LYMPH # 1.3 K/uL (1.0-4.3); LYMPH % 16.3 % (20.0-40.0); MEAN CELL VOLUME 97.9 fL (80.0-94.0); MEAN CORPUSCULAR HEMOGLOBIN 34.1 pg (27.0-31.0); MEAN CORPUSCULAR HGB CONC 34.8 g/dL (33.0-37.0); MONO # 0.7 K/uL (0.0-0.8); MONO % 8.1 % (0.0-10.0); NEUT % 74.5 % (50.0-75.0); NRBC % 0.1 % (0.0-2.0); RBC 4.44 Mil/uL (4.40-5.90); RED CELL DISTRIBUTION WIDTH 13.8 % (11.5-14.5)
[2018-12-12 06:52] LABS: CK-MB 2.79 ng/mL (0.0-3.38)
[2018-12-12 06:56] LABS: ALB/GLOB RATIO 1.2 (1.0-2.1); ALBUMIN 3.6 g/dL (3.5-5.0); ALT/SGPT 23 U/L (21-72); AST/SGOT 37 U/L (17-59); BLOOD UREA NITROGEN 24 mg/dL (9-20); CALCIUM 9.6 mg/dl (8.6-10.4); GFR NON-AFRICAN AMERICAN > 60
--- NOTE | 2018-12-12 07:45 | PN ---
DATE: 12/12/2018 TIME OF EVALUATION: 06:45 a.m. NEUROLOGICAL PROBLEM: Significant cerebrovascular disease associating with unruptured aneurysm in right MCA territory and clipping on left MCA territory with significant atrophy as per CT finding. The patient is neurologically stable for cardiac procedure. PHYSICAL EXAMINATION: VITAL SIGNS: Blood pressure 114/64, mean artery pressure of 80, respiratory rate 16 and temperature afebrile with a pulse rate of 61. GENERAL: The patient is awake, alert, oriented to person, place and time. No focal deficit. The patient did have cardiac catheterization yesterday without any complication. Results are being reviewed. Consistent with multiple significant coronary artery disease with reduction of ejection fraction. As per the history, the patient is going to be transferred to [facility] for possible aortic valve replacement versus stenting her coronary arteries or coronary bypass surgery. From neurological point of view, continue the present management. No risk from neuro for anticoagulation at present. Rad Lyons MD
[2018-12-12] MEDS: Pantoprazole 40 mg EC Tab PO SCH (09:19)
[2018-12-12] MEDS: Dorzolamide 2% Opht Sol 10ml OU SCH ×3 (09:20→17:50)
[2018-12-12] MEDS: Magnesium Sulfate 1 gm in D5W 1 GM/100 ML BAG IVPB SCH ×2 (10:33→11:23)
--- NOTE | 2018-12-12 12:34 | CARD ---
APPROVED REPORT Date of service: 12/11/2018 EXAM: Two-dimensional and M-mode echocardiogram with Doppler and color Doppler. Other Information Quality : GoodRhythm : INDICATION Aortic Valve Disease Dyspnea Non STEMI RISK FACTORS Hypertension Hyperlipidemia 2D DIMENSIONS IVSd1.2 (0.7-1.1cm)LVDd4.2 (3.9-5.9cm) LVOT Diameter2.1 (1.8-2.4cm)PWd1.1 (0.7-1.1cm) LA Xyhpxn48 (18-58mL)LVDs2.9 (2.5-4.0cm) FS (%) 31.0 %LVEF (%)59.1 (>50%) LVEF (Harmon's)59.61 % M-Mode DIMENSIONS Left Atrium (MM)4.02 (2.5-4.0cm)Aortic Root3.85 (2.2-3.7cm) Aortic Cusp Exc.0.92 (1.5-2.0cm) Aortic Valve AoV Peak Nlauwzxe427.8cm/sAoV VTI58.6cmAO Peak GR.40mmHg LVOT Peak Oinuftmo624.0cm/sLVOT VTI24.58cmAO Mean GR.24mmHg YUE (VMAX)1.47ra6OLP (VTI)1.82sz4QH P 1/2 Owfz454og Mitral Valve MV E Zdlopwsf66.0cm/sE/A ratio0.0 TDI Lateral E' Peak V2.67cm/sMedial E' Peak V2.16cm/sE/Lateral E'25.5 E/Medial E'31.5 Tricuspid Valve TR Peak Symtddis430aw/sTR Peak Gr.37ftUkWAKL24geNo LEFT VENTRICLE The left ventricle is normal size. There is mild to moderate concentric left ventricular hypertrophy. The Ejection Fraction is 55-60%. There is normal LV segmental wall motion. Transmitral Doppler flow pattern is Grade I-abnormal relaxation pattern. The left atrial pressure is moderately elevated. moderately elevated la volume index of 51 mm/m2. RIGHT VENTRICLE The right ventricle is normal size. The right ventricular systolic function is normal. ATRIA The left atrium is mildly dilated. The right atrium size is normal. The interatrial septum is intact with no evidence for an atrial septal defect. AORTIC VALVE The aortic valve is moderately calcified. The aortic valve is trileaflet. There is mild aortic regurgitation. There is moderate valvular aortic stenosis. Calculated aortic valve area is 1.3 cm2 with maximum pressure gradient of 45 mmHg and mean pressure gradient of 24 mmHg. MITRAL VALVE The mitral valve is moderately thickened. Mitral annular calcification is moderate. Mitral regurgitation is mild. TRICUSPID VALVE The tricuspid valve is normal in structure. There is mild tricuspid regurgitation. There is no pulmonary hypertension. PULMONIC VALVE The pulmonary valve is normal in structure. GREAT VESSELS The aortic root is mildly enlarged. The aortic root displays mild sclerocalcific changes of the aortic root. The IVC is normal in size and collapses >50% with inspiration. PERICARDIAL EFFUSION There is no pericardial effusion. <Conclusion> The left ventricle is normal size. There is mild to moderate concentric left ventricular hypertrophy. The Ejection Fraction is 55-60%. Transmitral Doppler flow pattern is Grade I-abnormal relaxation pattern. The left atrial pressure is moderately elevated. moderately elevated la volume index of 51 mm/m2. The left atrium is mildly dilated. The aortic valve is moderately calcified. The aortic valve is trileaflet. There is mild aortic regurgitation. There is moderate valvular aortic stenosis. Calculated aortic valve area is 1.3 cm2 with maximum pressure gradient of 45 mmHg and mean pressure gradient of 24 mmHg. Mitral regurgitation is mild. There is mild tricuspid regurgitation. There is no pulmonary hypertension. The aortic root is mildly enlarged. The aortic root displays mild sclerocalcific changes of the aortic root. The IVC is normal in size and collapses >50% with inspiration. There is no pericardial effusion.
[2018-12-12] MEDS: Sodium Chloride 0.9% 1,000 ML IV SCH (15:07)
[2018-12-12] MEDS: Heparin25000 units/250ml 1/2NS 25,000 UNITS/250 ML BAG IV PRN (17:53)
--- NOTE | 2018-12-13 00:22 | CP.PCM.PN ---
Subjective - Date & Time of Evaluation Date of Evaluation: 12/12/18 Time of Evaluation: 17:25 - Subjective Subjective: Patient seen and evaluated Denies chest pain and dyspnea Awaiting transfer to [place] for further management Patient is an 83 year old male with PMHx HTN, coronary arery disease, peripheral vascular disease, hypercholesterolemia, CVA, vascular dementia, aortic stenosis, brain aneurysm s/p endovascular repair who presents status-post cardiac cath for post-op ICU monitoring. Patient initially presented to his physician for angina l chest pain, which patient states began several months ago and has been having since that time. He states having pain when walking distance of a block or less like tightness in his chest. Patient has history of dementia, CVA, and aneurysm and notes having difficulty with memory and does appear to have difficulty concentrating while answering questions and goes off topic. Patient denies any chest pain at present, denies pain at catheter site, denies bleeding, numbness, or tingling. Patient is aware he may be transferred to [facility] for CABG due to high-risk nature of his cardiac disease (diffuse triple vessel disease. Patient in ICU for monitoring, cardiac medical monitoring per cardio, Dr. Bradshaw. PMHx: HTN, coronary arery disease, peripheral vascular disease, hypercholesterolemia, CVA, vascular dementia, aortic stenosis, brain aneurysm s/p endovascular repair Social history: Denies smoking, alcohol use. [facility] [place] [facility]: Endovascular brain aneurysm repair Allergies: Vancomycin, TCAs, codeine Review of Systems - Constitutional Constitutional: absent: Chills, Fever - Cardiovascular Cardiovascular: Chest Pain with Activity. absent: Chest Pain at Rest, Claudication, Pain Radiating to Arm/Neck/Jaw, Palpitations, Radiating Pain - Respiratory Respiratory: absent: Cough, Dyspnea - Gastrointestinal Gastrointestinal: absent: Abdominal Pain, Nausea, Vomiting - Musculoskeletal Musculoskeletal: absent: Back Pain, Neck Pain - Neurological Neurological: Confusion, Memory Loss. absent: Dizziness, Numbness, Headaches - Psychiatric Psychiatric: absent: Anxiety, Depression - Hematologic/Lymphatic Hematologic: absent: Easy Bleeding, Easy Bruising Physical Exam - Constitutional Appears: Non-toxic, No Acute Distress - Head Exam Head Exam: ATRAUMATIC, NORMOCEPHALIC - Eye Exam Eye Exam: EOMI, Normal appearance - ENT Exam ENT Exam: Mucous Membranes Moist - Respiratory Exam Respiratory Exam: Clear to Auscultation Bilateral, NORMAL BREATHING PATTERN. absent: Rhonchi, Wheezes - Cardiovascular Exam Cardiovascular Exam: REGULAR RHYTHM, +S1, +S2, Systolic Murmur. absent: JVD - GI/Abdominal Exam GI & Abdominal Exam: Normal Bowel Sounds, Soft. absent: Tenderness - Extremities Exam Extremities exam: Positive for: normal inspection, pedal pulses present. Negative for: pedal edema, tenderness - Neurological Exam Neurological exam: Alert, CN II-XII Intact, Oriented x3 - Psychiatric Exam Psychiatric exam: Normal Affect, Normal Mood - Skin Skin Exam: Dry, Intact, Normal Color Objective - Vital Signs/Intake and Output Vital Signs (last 24 hours): Temp Pulse Resp BP Pulse Ox 97.3 F L 65 13 93/58 L 98 12/12/18 20:00 12/12/18 20:00 12/12/18 20:00 12/12/18 20:00 12/12/18 20:00 Intake and Output: 12/12/18 12/13/18 18:59 06:59 Intake Total 1498 49 Output Total 202 Balance 1296 49 - Medications Medications: Current Medications Acetaminophen (Tylenol 325mg Tab) 650 mg PO Q6 PRN PRN Reason: Pain, Mild (1-3) Last Admin: 12/11/18 12:05 Dose: 650 mg Aspirin (Aspirin Chewable) 81 mg PO DAILY [facility] Last Admin: 12/12/18 09:19 Dose: 81 mg Donepezil HCl (Aricept) 10 mg PO HS [facility] Last Admin: 12/12/18 21:33 Dose: 10 mg Dorzolamide HCl (Trusopt) 0 ml OU TID [facility] Last Admin: 12/12/18 17:50 Dose: 1 drop Fenofibrate (Tricor) 145 mg PO QPM [facility] Last Admin: 12/12/18 18:05 Dose: 145 mg Home Med (Eslicarbazepine Acetate [Aptiom]) 200 mg PO DAILY [facility] Heparin Sodium/Sodium Chloride (Heparin 96295 Units/250ml 1/2 Normal Saline) 25,000 units in 250 mls @ 8.981 mls/hr IV .Q24H PRN; Protocol PRN Reason: PROTOCOL Last Admin: 12/12/18 17:53 Dose: 12 units/kg/hr, 8.981 mls/hr Sodium Chloride (Sodium Chloride 0.9%) 1,000 mls @ 40 mls/hr IV .Q24H [facility] Last Admin: 12/12/18 15:07 Dose: 40 mls/hr Metoprolol Tartrate (Lopressor) 50 mg PO BID [facility] Last Admin: 12/12/18 17:51 Dose: 50 mg Montelukast Sodium (Singulair) 10 mg PO HS [facility] Last Admin: 12/12/18 21:33 Dose: 10 mg Pantoprazole Sodium (Protonix Ec Tab) 40 mg PO DAILY [facility] Last Admin: 12/12/18 09:19 Dose: 40 mg Rosuvastatin Calcium (Crestor) 10 mg PO HS [facility] Last Admin: 12/12/18 21:33 Dose: 10 mg Spironolactone (Aldactone) 25 mg PO BID [facility] Last Admin: 12/12/18 17:50 Dose: 25 mg Tamsulosin HCl (Flomax) 0.4 mg PO DAILY [facility] Last Admin: 12/12/18 09:20 Dose: 0.4 mg - Labs Labs: 12/12/18 06:24 12/12/18 06:24 PT 20.3 SECONDS (9.7-12.2) H 12/11/18 05:55 INR 1.8 12/11/18 05:55 APTT 93.0 SECONDS (21-34) H D 12/12/18 02:07 Assessment and Plan - Assessment and Plan (Free Text) Assessment: 83 year old male with hypercholesterolemia and significant vascular/coronary artery disease presenting with anginal chest pain and found to have extensive triple vessel disease and aortic stenosis, and a fib, s/p diganostic cath with Dr. Bradshaw. ICU monitoring and transfer to [facility] for CABG/SAVR Plan Cardio Triple Vessel Coronary Artery Disease s/p Diagnostic Cardiac Cath -Cath findings per Dr. Bradshaw: 1. L Main: Ostial 95%, distal 70% 2. LAD: Mid 90%, Distal 95% 3. L CX: Mid 98%, OM1 80% 4. RCA: Dominant. PDA 70%, PLV 80% 5. LV: Not assessed -ICU for cardiac monitoring -Defibrillator pads in place Meds -Heparin ggt -ASA 81 mg po daily -Crestor 10 mg PO HS -Possible transfer to [place] for CABG/SAVR -f/u echo report Aortic Stenosis -Possible transfer to [place] for CABG/SAVR -Currently asymptomatic Atrial Fibrillation -ICU cardiac monitoring -On admission was subtherapeutic on coumadin, how on heparin -Monitor PTT/INR -Sinus tach on monitor Meds -Heparin ggt -Metoprolol 50 mg PO BID Pulm -Breathing comfortably on room air -Maintain spO2 > 92% -On singulair at home - history COPD? Neuro Hx Vascular dementia, CVA, cerebral artery aneurysm -Neurology consulted, Dr. Lyons --CT head to r/o intracerebral bleed prior to further cardiac intervention or AC --> ----CT head 12/11: negative for bleed, stable 9mm peripherally calcified aneurysm. s/p placement of aneurysm clip L temporal fossa. ----Continue heparin ggt --EEG - f/u Meds -Donepazil 10 mg PO HS -A and O x3 Nephro -NS @ 40 cc/hr -Spironolactone 25 mg PO BID -Monitor Is and Os BPH -Flomax daily PPx -Heparin drip -Protonix 40 mg PO daily -Heparin ggt
[2018-12-13 06:00] LABS: BASO % 0.6 % (0.0-2.0); EOS % 0.6 % (0.0-4.0); HEMOGLOBIN 15.1 g/dL (12.0-18.0); LYMPH # 1.5 K/uL (1.0-4.3); LYMPH % 19.8 % (20.0-40.0); MEAN CELL VOLUME 98.1 fL (80.0-94.0); MEAN CORPUSCULAR HEMOGLOBIN 33.6 pg (27.0-31.0); MEAN CORPUSCULAR HGB CONC 34.2 g/dL (33.0-37.0); MEAN PLATELET VOLUME 8.3 fL (7.2-11.7); MONO # 0.7 K/uL (0.0-0.8); MONO % 9.2 % (0.0-10.0); NEUT # 5.2 K/uL (1.8-7.0); NEUT % 69.8 % (50.0-75.0); RBC 4.48 Mil/uL (4.40-5.90); RED CELL DISTRIBUTION WIDTH 13.6 % (11.5-14.5); WHITE BLOOD COUNT 7.5 K/uL (4.8-10.8)
[2018-12-13 06:21] LABS: ALB/GLOB RATIO 1.3 (1.0-2.1); ALBUMIN 3.5 g/dL (3.5-5.0); ALT/SGPT 25 U/L (21-72); AST/SGOT 32 U/L (17-59); BLOOD UREA NITROGEN 24 mg/dL (9-20); CALCIUM 9.4 mg/dl (8.6-10.4); GFR NON-AFRICAN AMERICAN > 60
--- NOTE | 2018-12-13 06:53 | CP.PCM.PN ---
Subjective - Date & Time of Evaluation Date of Evaluation: 12/13/18 Time of Evaluation: 06:53 - Subjective Subjective: Patient underwent angiogram. Severe triple-vessel disease noted. Patient also has aortic stenosis. Because of the worsening heart condition, patient was transferred to intensive care unit. Patient will be possibly transferred to tertiary care center for possible cardiac surgery. Meanwhile we will closely monitor in ICU Objective - Vital Signs/Intake and Output Vital Signs (last 24 hours): Temp Pulse Resp BP Pulse Ox 98.6 F 65 13 96/60 L 95 12/13/18 04:00 12/13/18 04:00 12/13/18 04:00 12/13/18 04:00 12/13/18 04:00 Intake and Output: 12/12/18 12/13/18 18:59 06:59 Intake Total 1498 407 Output Total 202 500 Balance 1296 -93 - Medications Medications: Current Medications Acetaminophen (Tylenol 325mg Tab) 650 mg PO Q6 PRN PRN Reason: Pain, Mild (1-3) Last Admin: 12/11/18 12:05 Dose: 650 mg Aspirin (Aspirin Chewable) 81 mg PO DAILY [facility] Last Admin: 12/12/18 09:19 Dose: 81 mg Donepezil HCl (Aricept) 10 mg PO HS [facility] Last Admin: 12/12/18 21:33 Dose: 10 mg Dorzolamide HCl (Trusopt) 0 ml OU TID [facility] Last Admin: 12/12/18 17:50 Dose: 1 drop Fenofibrate (Tricor) 145 mg PO QPM [facility] Last Admin: 12/12/18 18:05 Dose: 145 mg Home Med (Eslicarbazepine Acetate [Aptiom]) 200 mg PO DAILY [facility] Heparin Sodium/Sodium Chloride (Heparin 09477 Units/250ml 1/2 Normal Saline) 25,000 units in 250 mls @ 8.981 mls/hr IV .Q24H PRN; Protocol PRN Reason: PROTOCOL Last Admin: 12/12/18 17:53 Dose: 12 units/kg/hr, 8.981 mls/hr Sodium Chloride (Sodium Chloride 0.9%) 1,000 mls @ 40 mls/hr IV .Q24H [facility] Last Admin: 12/12/18 15:07 Dose: 40 mls/hr Metoprolol Tartrate (Lopressor) 50 mg PO BID [facility] Last Admin: 12/12/18 17:51 Dose: 50 mg Montelukast Sodium (Singulair) 10 mg PO HS [facility] Last Admin: 12/12/18 21:33 Dose: 10 mg Pantoprazole Sodium (Protonix Ec Tab) 40 mg PO DAILY [facility] Last Admin: 12/12/18 09:19 Dose: 40 mg Rosuvastatin Calcium (Crestor) 10 mg PO HS [facility] Last Admin: 12/12/18 21:33 Dose: 10 mg Spironolactone (Aldactone) 25 mg PO BID [facility] Last Admin: 12/12/18 17:50 Dose: 25 mg Tamsulosin HCl (Flomax) 0.4 mg PO DAILY [facility] Last Admin: 12/12/18 09:20 Dose: 0.4 mg - Labs Labs: 12/13/18 05:47 12/13/18 05:47 PT 20.3 SECONDS (9.7-12.2) H 12/11/18 05:55 INR 1.8 12/11/18 05:55 APTT 94.0 SECONDS (21-34) H 12/13/18 05:47
--- NOTE | 2018-12-13 06:53 | CP.PCM.PN ---
Subjective - Date & Time of Evaluation Date of Evaluation: 12/12/18 Time of Evaluation: 19:35 - Subjective Subjective: Patient underwent angiogram. Severe triple-vessel disease noted. Patient also has aortic stenosis. Because of the worsening heart condition, patient was transferred to intensive care unit. Patient will be possibly transferred to tertiary care center for possible cardiac surgery. Meanwhile we will closely monitor in ICU Objective - Vital Signs/Intake and Output Vital Signs (last 24 hours): Temp Pulse Resp BP Pulse Ox 98.6 F 65 13 96/60 L 95 12/13/18 04:00 12/13/18 04:00 12/13/18 04:00 12/13/18 04:00 12/13/18 04:00 Intake and Output: 12/12/18 12/13/18 18:59 06:59 Intake Total 1498 407 Output Total 202 500 Balance 1296 -93 - Medications Medications: Current Medications Acetaminophen (Tylenol 325mg Tab) 650 mg PO Q6 PRN PRN Reason: Pain, Mild (1-3) Last Admin: 12/11/18 12:05 Dose: 650 mg Aspirin (Aspirin Chewable) 81 mg PO DAILY [facility] Last Admin: 12/12/18 09:19 Dose: 81 mg Donepezil HCl (Aricept) 10 mg PO HS [facility] Last Admin: 12/12/18 21:33 Dose: 10 mg Dorzolamide HCl (Trusopt) 0 ml OU TID [facility] Last Admin: 12/12/18 17:50 Dose: 1 drop Fenofibrate (Tricor) 145 mg PO QPM [facility] Last Admin: 12/12/18 18:05 Dose: 145 mg Home Med (Eslicarbazepine Acetate [Aptiom]) 200 mg PO DAILY [facility] Heparin Sodium/Sodium Chloride (Heparin 00568 Units/250ml 1/2 Normal Saline) 25,000 units in 250 mls @ 8.981 mls/hr IV .Q24H PRN; Protocol PRN Reason: PROTOCOL Last Admin: 12/12/18 17:53 Dose: 12 units/kg/hr, 8.981 mls/hr Sodium Chloride (Sodium Chloride 0.9%) 1,000 mls @ 40 mls/hr IV .Q24H [facility] Last Admin: 12/12/18 15:07 Dose: 40 mls/hr Metoprolol Tartrate (Lopressor) 50 mg PO BID [facility] Last Admin: 12/12/18 17:51 Dose: 50 mg Montelukast Sodium (Singulair) 10 mg PO HS [facility] Last Admin: 12/12/18 21:33 Dose: 10 mg Pantoprazole Sodium (Protonix Ec Tab) 40 mg PO DAILY [facility] Last Admin: 12/12/18 09:19 Dose: 40 mg Rosuvastatin Calcium (Crestor) 10 mg PO HS [facility] Last Admin: 12/12/18 21:33 Dose: 10 mg Spironolactone (Aldactone) 25 mg PO BID [facility] Last Admin: 12/12/18 17:50 Dose: 25 mg Tamsulosin HCl (Flomax) 0.4 mg PO DAILY [facility] Last Admin: 12/12/18 09:20 Dose: 0.4 mg - Labs Labs: 12/13/18 05:47 12/13/18 05:47 PT 20.3 SECONDS (9.7-12.2) H 12/11/18 05:55 INR 1.8 12/11/18 05:55 APTT 94.0 SECONDS (21-34) H 12/13/18 05:47
[2018-12-13 08:03] VITALS: O2SAT 98
[2018-12-13] MEDS: Pantoprazole 40 mg EC Tab PO SCH (09:28)
[2018-12-13] MEDS: Dorzolamide 2% Opht Sol 10ml OU SCH ×3 (09:28→17:26)
[2018-12-13] MEDS: Sodium Chloride 0.9% 1,000 ML IV SCH (14:37)
[2018-12-13 17:05] VITALS: BP 98/53; RESP 20; TEMP 97.8
[2018-12-13 18:50] VITALS: PULSE 92
[2018-12-13] MEDS: Heparin25000 units/250ml 1/2NS 25,000 UNITS/250 ML BAG IV PRN (21:45)
--- NOTE | 2018-12-14 23:45 | CP.PCM.PN ---
Subjective - Date & Time of Evaluation Date of Evaluation: 12/13/18 Time of Evaluation: 08:20 - Subjective Subjective: Patient seen and evaluated Anxious to go to [place] Review of Systems - Constitutional Constitutional: absent: Chills, Fever - Cardiovascular Cardiovascular: Chest Pain with Activity. absent: Chest Pain at Rest, Claudication, Pain Radiating to Arm/Neck/Jaw, Palpitations, Radiating Pain - Respiratory Respiratory: absent: Cough, Dyspnea - Gastrointestinal Gastrointestinal: absent: Abdominal Pain, Nausea, Vomiting - Musculoskeletal Musculoskeletal: absent: Back Pain, Neck Pain - Neurological Neurological: Confusion, Memory Loss. absent: Dizziness, Numbness, Headaches - Psychiatric Psychiatric: absent: Anxiety, Depression - Hematologic/Lymphatic Hematologic: absent: Easy Bleeding, Easy Bruising Physical Exam - Constitutional Appears: Non-toxic, No Acute Distress - Head Exam Head Exam: ATRAUMATIC, NORMOCEPHALIC - Eye Exam Eye Exam: EOMI, Normal appearance - ENT Exam ENT Exam: Mucous Membranes Moist - Respiratory Exam Respiratory Exam: Clear to Auscultation Bilateral, NORMAL BREATHING PATTERN. absent: Rhonchi, Wheezes - Cardiovascular Exam Cardiovascular Exam: REGULAR RHYTHM, +S1, +S2, Systolic Murmur. absent: JVD - GI/Abdominal Exam GI & Abdominal Exam: Normal Bowel Sounds, Soft. absent: Tenderness - Extremities Exam Extremities exam: Positive for: normal inspection, pedal pulses present. Negative for: pedal edema, tenderness - Neurological Exam Neurological exam: Alert, CN II-XII Intact, Oriented x3 - Psychiatric Exam Psychiatric exam: Normal Affect, Normal Mood - Skin Skin Exam: Dry, Intact, Normal Color Objective - Vital Signs/Intake and Output Vital Signs (last 24 hours): Temp Pulse Resp BP Pulse Ox 97.8 F 92 H 20 98/53 L 98 12/13/18 16:00 12/13/18 18:00 12/13/18 16:00 12/13/18 16:00 12/13/18 08:00 - Labs Labs: 12/13/18 05:47 12/13/18 05:47 PT 20.3 SECONDS (9.7-12.2) H 12/11/18 05:55 INR 1.8 12/11/18 05:55 APTT 94.0 SECONDS (21-34) H 12/13/18 05:47 Assessment and Plan - Assessment and Plan (Free Text) Assessment: 83 year old male with hypercholesterolemia and significant vascular/coronary artery disease presenting with anginal chest pain and found to have extensive triple vessel disease and aortic stenosis, and a fib, s/p diganostic cath with Dr. Bradshaw. ICU monitoring and transfer to [facility] for CABG/SAVR Plan Cardio Triple Vessel Coronary Artery Disease s/p Diagnostic Cardiac Cath -Cath findings per Dr. Bradshaw: 1. L Main: Ostial 95%, distal 70% 2. LAD: Mid 90%, Distal 95% 3. L CX: Mid 98%, OM1 80% 4. RCA: Dominant. PDA 70%, PLV 80% 5. LV: Not assessed -ICU for cardiac monitoring -Defibrillator pads in place Meds -Heparin ggt -ASA 81 mg po daily -Crestor 10 mg PO HS -Possible transfer to [place] for CABG/SAVR -f/u echo report Aortic Stenosis -Possible transfer to [place] for CABG/SAVR -Currently asymptomatic Atrial Fibrillation -ICU cardiac monitoring -On admission was subtherapeutic on coumadin, how on heparin -Monitor PTT/INR -Sinus tach on monitor Meds -Heparin ggt -Metoprolol 50 mg PO BID Pulm -Breathing comfortably on room air -Maintain spO2 > 92% -On singulair at home - history COPD? Neuro Hx Vascular dementia, CVA, cerebral artery aneurysm -Neurology consulted, Dr. Lyons --CT head to r/o intracerebral bleed prior to further cardiac intervention or AC --> ----CT head 12/11: negative for bleed, stable 9mm peripherally calcified aneurysm. s/p placement of aneurysm clip L temporal fossa. ----Continue heparin ggt --EEG - f/u Meds -Donepazil 10 mg PO HS -A and O x3 Nephro -NS @ 40 cc/hr -Spironolactone 25 mg PO BID -Monitor Is and Os BPH -Flomax daily PPx -Heparin drip -Protonix 40 mg PO daily -Heparin ggt
--- NOTE | 2018-12-16 21:16 | CP.PCM.DIS ---
Provider - Provider Date of Admission: 12/11/18 10:27 Attending physician: Oscar Gonzalez MD Consults: 12/10/18 21:48 Cardiology Consult Routine Comment: Consulting Provider: Alvarez Bradshaw Consulting Physician: Alvarez Bradshaw Reason for Consult: sob 12/10/18 22:44 Neurology Consult Routine Comment: Please notify Dr. Lyons (Routine consult) Consulting Provider: Rad Lyons Consulting Physician: Rad Lyons Reason for Consult: Hx of cerebral bleed. Clearance for antiplatelets and anticoagulatio Hospital Course - Lab Results Lab Results: Micro Results 12/11/18 12:21 Naris MRSA Culture (Admit) - Final MRSA NOT DETECTED Most Recent Lab Values WBC 7.5 K/uL (4.8-10.8) 12/13/18 05:47 RBC 4.48 Mil/uL (4.40-5.90) 12/13/18 05:47 Hgb 15.1 g/dL (12.0-18.0) 12/13/18 05:47 Hct 44.0 % (35.0-51.0) 12/13/18 05:47 MCV 98.1 fL (80.0-94.0) H 12/13/18 05:47 MCH 33.6 pg (27.0-31.0) H 12/13/18 05:47 MCHC 34.2 g/dL (33.0-37.0) 12/13/18 05:47 RDW 13.6 % (11.5-14.5) 12/13/18 05:47 Plt Count 207 K/uL (130-400) 12/13/18 05:47 MPV 8.3 fL (7.2-11.7) 12/13/18 05:47 Neut % (Auto) 69.8 % (50.0-75.0) 12/13/18 05:47 Lymph % (Auto) 19.8 % (20.0-40.0) L 12/13/18 05:47 [place] % (Auto) 9.2 % (0.0-10.0) 12/13/18 05:47 Eos % (Auto) 0.6 % (0.0-4.0) 12/13/18 05:47 Baso % (Auto) 0.6 % (0.0-2.0) 12/13/18 05:47 Neut # (Auto) 5.2 K/uL (1.8-7.0) 12/13/18 05:47 Lymph # (Auto) 1.5 K/uL (1.0-4.3) 12/13/18 05:47 [place] # (Auto) 0.7 K/uL (0.0-0.8) 12/13/18 05:47 Eos # (Auto) 0.0 K/uL (0.0-0.7) 12/13/18 05:47 Baso # (Auto) 0.0 K/uL (0.0-0.2) 12/13/18 05:47 ESR 3 mm/hr (0-15) 12/11/18 07:19 PT 20.3 SECONDS (9.7-12.2) H 12/11/18 05:55 INR 1.8 12/11/18 05:55 APTT 94.0 SECONDS (21-34) H 12/13/18 05:47 Sodium 137 mmol/L (132-148) 12/13/18 05:47 Potassium 3.8 mmol/L (3.6-5.2) 12/13/18 05:47 Chloride 106 mmol/L (98-107) 12/13/18 05:47 Carbon Dioxide 21 mmol/L (22-30) L 12/13/18 05:47 Anion Gap 13 (10-20) 12/13/18 05:47 BUN 24 mg/dL (9-20) H 12/13/18 05:47 Creatinine 0.8 mg/dL (0.8-1.5) 12/13/18 05:47 Est GFR ( Amer) > 60 12/13/18 05:47 Est GFR (Non-Af Amer) > 60 12/13/18 05:47 Random Glucose 103 mg/dL (75-110) 12/13/18 05:47 Hemoglobin A1c 5.5 % (4.2-6.5) 12/11/18 07:19 Calcium 9.4 mg/dl (8.6-10.4) 12/13/18 05:47 Phosphorus 2.4 mg/dL (2.5-4.5) L 12/13/18 05:47 Magnesium 1.7 mg/dL (1.6-2.3) 12/13/18 05:47 Total Bilirubin 0.8 mg/dL (0.2-1.3) 12/13/18 05:47 AST 32 U/L (17-59) 12/13/18 05:47 ALT 25 U/L (21-72) 12/13/18 05:47 Alkaline Phosphatase 31 U/L (38-126) L 12/13/18 05:47 Total Creatine Kinase 47 U/L (55-170) L 12/12/18 06:24 CK-MB (Mass) 2.79 ng/mL (0.0-3.38) 12/12/18 06:24 Troponin I 0.0460 ng/mL (0.00-0.120) 12/12/18 06:24 C-React Prot High Sens 0.15 mg/L (1.00-3.00) L 12/11/18 07:19 NT-Pro-B Natriuret Pep 1940 pg/mL (0-900) H 12/11/18 13:03 Total Protein 6.4 g/dL (6.3-8.3) 12/13/18 05:47 Albumin 3.5 g/dL (3.5-5.0) 12/13/18 05:47 Globulin 2.8 gm/dL (2.2-3.9) 12/13/18 05:47 Albumin/Globulin Ratio 1.3 (1.0-2.1) 12/13/18 05:47 Triglycerides 80 mg/dL (0-149) D 12/11/18 07:19 Cholesterol 126 mg/dL (0-199) 12/11/18 07:19 LDL Cholesterol Direct 94 mg/dL (0-129) 12/11/18 07:19 HDL Cholesterol 36 mg/dL (30-70) 12/11/18 07:19 Vitamin B12 312 pg/mL (239-931) 12/11/18 07:19 Folate 6.3 ng/mL 12/11/18 07:19 Free T4 0.94 ng/dL (0.78-2.19) 12/11/18 07:19 TSH 3rd Generation 3.53 mIU/L (0.46-4.68) 12/11/18 07:19 Discharge Exam - Head Exam Head Exam: ATRAUMATIC, NORMOCEPHALIC Discharge Plan - Follow Up Plan Condition: STABLE Disposition: Trans to Other Acute Care Hosp Instructions: Chest Pain (DC)
--- NOTE | 2018-12-18 02:46 | CARDCATH ---
PROCEDURE DATE: 12/11/2018 PROCEDURE: Coronary angiogram. REFERRING PHYSICIAN: 1. Oscar Gonzalez MD 2. Sunny Blanc MD CLINICAL INDICATIONS: 1. Unstable angina. 2. Dyspnea. 3. Aortic stenosis. 4. History of coronary artery disease. 5. Atrial fibrillation. 6. Hypertension. 7. Hyperlipidemia. 8. Peripheral arterial disease. 9. Dementia. 10. History of cerebral aneurysm and post clip bleeding. DESCRIPTION OF PROCEDURE: After informed consent, the patient was prepped and draped in the usual sterile fashion. Lidocaine 2% was given in the right groin for local anesthesia. Using micropuncture technique, 6-Ivorian sheath was introduced into the right common femoral artery. JL4 6-Ivorian diagnostic catheter was engaged into left main coronary artery. Contrast injected and left coronary angiogram was done. Then the catheter was exchanged to JR4 6-Ivorian diagnostic catheter. The JR4 diagnostic catheter engaged into the right coronary artery. Contrast injected and right coronary angiogram was done. The patient tolerated the procedure well. Postprocedure, Mynx closure device was deployed with excellent hemostasis. Radiological supervision and radiological interpretation of the coronary imaging was done. FINDINGS: 1. Ostial left main has a critical 95% stenosis. Distal left main has 70% stenosis. 2. LAD has diffuse disease. Mid LAD has 90% stenosis. Distal LAD has 95% stenosis. 3. Left circumflex has a 98% mid stenosis. Obtuse marginal 1 has 80% stenosis. 4. Right coronary artery is dominant. PDA had 70% stenosis. PLV has 80% stenosis. IMPRESSION: 1. Severe coronary artery disease as described above. 2. Moderate to severe aortic stenosis by echo. RECOMMENDATIONS: Recommend coronary artery bypass grafting plus aortic valve replacement. Alvarez Bradshaw MD
--- NOTE | 2018-12-18 15:40 | EEG ---
DATE: 12/12/2018 This is a 16-channel electroencephalogram of awake and drowsy adult. During the study, photic stimulation was performed. Hyperventilation was not performed. The resting electroencephalogram consists of 4 to 5 Hz moderate voltage theta activities seen with intermittent muscle artifact contaminated the background rhythm. There is intermittent pop artifacts noted. The photic stimulation did not evoke driving response noted at 2 to 20 Hz. IMPRESSION: This is an abnormal electroencephalogram because of persistent slowing throughout the record suggested of bilaterally cerebral dysfunction. This is probably secondary to metabolic vascular or degenerative process. Please correlate the findings with the neurological and radiological studies. Rad Lyons MD
== END 2018-12-13 22:45 | disposition short-term general hospital (02) | DRG 287 ==
LOC: C.ER 14:10 → C.6T 19:56 → OBSVTOIN 12-11 10:27 → C.9I 12-11 10:52
PROVIDERS: ADMIT Internal Medicine; ATTEND Internal Medicine
PROC: 4A023N7 Measurement of Cardiac Sampling and Pressure, Left Heart, Percutaneous Approach (ICD-10-PCS; principal; 2018-12-11)
PROC: B2151ZZ Fluoroscopy of Left Heart using Low Osmolar Contrast (ICD-10-PCS; 2018-12-11)
PROC: B2111ZZ Fluoroscopy of Multiple Coronary Arteries using Low Osmolar Contrast (ICD-10-PCS; 2018-12-11)
DX: I25.119 Atherosclerotic heart disease of native coronary artery with unspecified angina pectoris (principal); I48.92 Unspecified atrial flutter; I48.91 Unspecified atrial fibrillation; I35.0 Nonrheumatic aortic (valve) stenosis; I10 Essential (primary) hypertension; I73.9 Peripheral vascular disease, unspecified; J45.909 Unspecified asthma, uncomplicated; G81.91 Hemiplegia, unspecified affecting right dominant side; E78.5 Hyperlipidemia, unspecified; E78.00 Pure hypercholesterolemia, unspecified; H40.9 Unspecified glaucoma; F01.50 Vascular dementia, unspecified severity, without behavioral disturbance, psychotic disturbance, mood disturbance, and anxiety; I69.318 Other symptoms and signs involving cognitive functions following cerebral infarction; Z86.79 Personal history of other diseases of the circulatory system; Z79.01 Long term (current) use of anticoagulants